=== PATIENT | female | born 1985 | race Caucasian/White ===

== ENCOUNTER → 2021-03-18 | Emergency (ER) | payer OTHER ==
[~2021-03-18] VITALS: Ht 165.1 cm; Wt 120.0 kg
[~2021-03-18] MED LIST: CLIN300C9 PO; CLINDAMYCIN HCL 150 MG CAPSULE PO ONE; DEXAMETHASONE SOD PHOS 10 MG/ML VIAL. PO ONE; HYDR-3165 PO; NAPR220C4 PO; NO HOME MEDS; oxyCODONE/APAP 5/325 1 TAB TABLET PO ONE
--- NOTE | 2021-03-18 20:44 | EKG ---
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
--- NOTE | 2021-03-18 21:24 | RAD ---
Study: XR CHEST 1V Indication: Chest pain. Comparison: None. Findings: Low lung volumes with mild basilar volume loss. Unremarkable cardiomediastinal silhouette and dane. N o large effusion or pneumothorax. Impression: No acute radiographic abnormality of the chest. Electronically signed by: BRANDEN WHYTE MD (03/18/2021 9:22 PM) [facility]
[2021-03-18 21:25] LABS: BASO # 0.1 x10^3/uL (0.0-0.2); BASO % 1 % (0-3); EOS # 0.1 x10^3/uL (0.0-0.7); EOS % 1 % (0-3); HEMATOCRIT 40.4 % (36.0-47.0); HEMOGLOBIN 13.7 g/dL (12.0-15.5); LYMPH # 2.8 x10^3/uL (1.0-4.8); LYMPH % 34 % (24-48); MEAN CORPUSCULAR HEMOGLOBIN 31 pg (25-35); MEAN CORPUSCULAR HGB CONC 34 g/dL (31-37); MEAN CORPUSCULAR VOLUME 91 fL (79-100); MONO # 0.7 x10^3/uL (0.0-1.1); MONO % 8 % (0-9); NEUT # 4.5 x10^3uL (1.8-7.7); NEUT % 55 % (31-73); PLATELET COUNT 290 x10^3/uL (140-400); RED BLOOD COUNT 4.43 x10^6/uL (3.50-5.40); RED CELL DISTRIBUTION WIDTH 13.1 % (11.5-14.5); WHITE BLOOD COUNT 8.1 x10^3/uL (4.0-11.0)
[2021-03-18 21:33] LABS: CALCIUM 9.3 mg/dL (8.5-10.1); GFR 62.4; POTASSIUM 3.6 mmol/L (3.5-5.1)
--- NOTE | 2021-03-18 22:14 | PHYS DOC ---
Past History Past Medical History: Diabetes Past Surgical History: Smoking: Non-smoker Alcohol Use: None Drug Use: None Adult General Chief Complaint Chief Complaint: CHEST PAIN HPI HPI Patient is a 35-year-old female who presents with 3 days of sore throat. States it started about 3 days ago she had intermittent mild headache as well. Denies any rhinorrhea, cough, shortness of breath, chest pain, abdominal pain, nausea, vomiting. Denies any recent travel, illnesses, known ill contacts. States she thinks that she did have a fever earlier in the day but does not have a thermometer at home. States she had not taken any medications. Review of Systems Review of Systems Review of systems otherwise unremarkable except noted in HPI Allergies Allergies Allergies Coded Allergies Type Severity Reaction Last Updated Verified Penicillins Allergy Unknown 12/01/15 Yes Physical Exam Physical Exam Constitutional: Well developed, well nourished, no acute distress, non-toxic appearance. [] HENT: Normocephalic, atraumatic, bilateral external ears normal, edematous bilaterally with bilateral exudates nose normal. [] Eyes: conjunctiva normal, no discharge. [] Neck: Normal range of motion, no tenderness, supple, no stridor. [] Cardiovascular:Heart rate regular rhythm, no murmur [] Lungs & Thorax: Bilateral breath sounds clear to auscultation [] Abdomen: soft, no tenderness, no masses, no pulsatile masses. [] Neurologic: Alert and oriented X 3, normal motor function, normal sensory function, no focal deficits noted. [] Psychologic: Affect normal, judgement normal, mood normal. [] Current Patient Data Vital Signs Vital Signs Date Time Temp Pulse Resp B/P (MAP) Pulse Ox O2 Delivery O2 Flow Rate FiO2 03/18/21 19:56 98.5 83 16 128/88 (101) 97 Room Air Lab Results Laboratory Tests Test 03/18/21 20:06 White Blood Count 8.1 x10^3/uL (4.0-11.0) Red Blood Count 4.43 x10^6/uL (3.50-5.40) Hemoglobin 13.7 g/dL (12.0-15.5) Hematocrit 40.4 % (36.0-47.0) Mean Corpuscular Volume 91 fL (79-100) Mean Corpuscular Hemoglobin 31 pg (25-35) Mean Corpuscular Hemoglobin Concent 34 g/dL (31-37) Red Cell Distribution Width 13.1 % (11.5-14.5) Platelet Count 290 x10^3/uL (140-400) Neutrophils (%) (Auto) 55 % (31-73) Lymphocytes (%) (Auto) 34 % (24-48) Monocytes (%) (Auto) 8 % (0-9) Eosinophils (%) (Auto) 1 % (0-3) Basophils (%) (Auto) 1 % (0-3) Neutrophils # (Auto) 4.5 x10^3uL (1.8-7.7) Lymphocytes # (Auto) 2.8 x10^3/uL (1.0-4.8) Monocytes # (Auto) 0.7 x10^3/uL (0.0-1.1) Eosinophils # (Auto) 0.1 x10^3/uL (0.0-0.7) Basophils # (Auto) 0.1 x10^3/uL (0.0-0.2) D-Dimer (Eusebia) 0.43 mg/L (0.00-0.50) Sodium Level 140 mmol/L (136-145) Potassium Level 3.6 mmol/L (3.5-5.1) Chloride Level 101 mmol/L (98-107) Carbon Dioxide Level 26 mmol/L (21-32) Anion Gap 13 (6-14) Blood Urea Nitrogen 20 mg/dL (7-20) Creatinine 1.0 mg/dL (0.6-1.0) Estimated GFR (Cockcroft-Gault) 62.4 Glucose Level 261 mg/dL (70-99) H Calcium Level 9.3 mg/dL (8.5-10.1) Troponin I Quantitative < 0.017 ng/mL (0-0.055) EKG EKG Normal rate, normal QTC normal QRS, no STEMI [] Radiology/Procedures Radiology/Procedures [] Heart Score C/O Chest Pain: No Risk Factors: Risk Factors: DM, Current or recent (<one month) smoker, HTN, HLP, family history of CAD, obesity. Risk Scores: Risk Factors: DM, Current or recent (<one month) smoker, HTN, HLP, family history of CAD, obesity. Course & Med Decision Making Course & Med Decision Making Patient is a 35-year-old female who presents with sore throat for 3 days Vital signs not concerning. Physical exam noted above. Centor criteria suggestive of strep pharyngitis Started on antibiotics in the ED. Given dexamethasone. Given pain medication. Discussed all findings with patient and advised on pain management at home. Advised to follow-up with primary care physician when she can to discuss ED visit and set up a follow-up visit. Gave return precautions to the ED. Patient grateful, verbalized understanding and agreed with plan of discharge. [] Dragon Disclaimer Dragon Disclaimer This electronic medical record was generated, in whole or in part, using a voice recognition dictation system. Departure Departure: Disposition: HOME / SELF CARE / HOMELESS Condition: GOOD Referrals: PCP,ROSA (PCP) RHETT VARELA MD Patient Instructions: Strep Throat Additional Instructions: Please read all of the attached information. Please take your antibiotics as prescribed. You can use Tylenol, ibuprofen and Cepacol lozenges at home as needed for pain control. Please follow-up with your primary care physician as soon as you can to discuss your ED visit and set up a follow-up visit. Please come back to the ED with new or concerning symptoms. Scripts Clindamycin Hcl (CLINDAMYCIN HCL) 300 Mg Capsule 1 CAP PO TID for strep throat for 10 Days, #29 CAP Prov: CRISTIAN KLEIN MD 03/18/21 CRISTIAN KLEIN MD March 18, 2021 22:14
[2021-03-18 22:21] VITALS: BP 128/70
== END ==
LOC: ER 19:42
DX: J02.9 Acute pharyngitis, unspecified (principal); R51.9 Headache, unspecified; R50.9 Fever, unspecified; E11.9 Type 2 diabetes mellitus without complications; Z98.890 Other specified postprocedural states; Z88.0 Allergy status to penicillin
CPT/HCPCS: 36415; 71045; 80048; 84484; 85025; 85379; 93005; 99285; J1100

== ENCOUNTER 2021-04-19 15:42 | Emergency (ER) | payer OTHER ==
[~2021-04-19] VITALS: Ht 165.1 cm; Wt 121.9 kg
[~2021-04-19 15:42] MED LIST changes: -CLINDAMYCIN HCL 150 MG CAPSULE PO ONE; -DEXAMETHASONE SOD PHOS 10 MG/ML VIAL. PO ONE; -oxyCODONE/APAP 5/325 1 TAB TABLET PO ONE
--- NOTE | 2021-04-19 16:08 | PHYS DOC ---
Past History Past Medical History: Diabetes, Gallstones Past Surgical History: Smoking: Non-smoker Alcohol Use: None Drug Use: None General Adult EDM: Chief Complaint: ABDOMINAL PAIN HPI: HPI: 35-year-old female presents with epigastric abdominal pain. Patient started to have pain last night after eating Rotel dip and jalapeno poppers. She had discomfort overnight and did not sleep well. She still states of pain that is 9 out of 10 in the epigastric area. She describes it as sharp. She denies nausea or vomiting. Denies fever or chills. She has no history of abdominal surgery except for 2 C-sections. She does not drink alcohol. Review of Systems: Review of Systems: Constitutional: Denies fever or chills Eyes: Denies change in visual acuity HENT: Denies nasal congestion or sore throat Respiratory: Denies cough or shortness of breath Cardiovascular: Denies chest pain or edema GI: Epigastric abdominal pain. Denies nausea, vomiting, bloody stools or diarrhea : Denies dysuria Musculoskeletal: Denies back pain or joint pain Integument: Denies rash Neurologic: Denies headache, focal weakness or sensory changes Endocrine: Denies polyuria or polydipsia Lymphatic: Denies swollen glands Psychiatric: Denies depression or anxiety Allergies: Allergies: Allergies Coded Allergies Type Severity Reaction Last Updated Verified Penicillins Allergy Unknown 12/01/15 Yes Physical Exam: PE: Constitutional: Well developed, well nourished, morbidly obese, no acute distress, non-toxic appearance. [] HENT: Normocephalic, atraumatic, bilateral external ears normal, oropharynx moist, no oral exudates, nose normal. [] Eyes: PERRLA, EOMI, conjunctiva normal, no discharge. [] Neck: Normal range of motion, no tenderness, supple, no stridor. [] Cardiovascular: Heart rate regular rhythm, no murmur [] Lungs & Thorax: Bilateral breath sounds clear to auscultation [] Abdomen: Bowel sounds normal, soft, epigastric tenderness, no masses, no pulsatile masses. [] Skin: Warm, dry, no erythema, no rash. [] Back: No tenderness, no CVA tenderness. [] Extremities: No tenderness, no cyanosis, no clubbing, ROM intact, no edema. [] Neurologic: Alert and oriented X 3, normal motor function, normal sensory function, no focal deficits noted. [] Psychologic: Affect normal, judgement normal, mood normal. [] Current Patient Data: Vital Signs: Vital Signs Date Time Temp Pulse Resp B/P (MAP) Pulse Ox O2 Delivery O2 Flow Rate FiO2 04/19/21 15:50 98.6 113 16 118/81 (93) 97 EKG: EKG: [] Radiology/Procedures: Radiology/Procedures: [] Heart Score: C/O Chest Pain: N/A Risk Factors: Risk Factors: DM, Current or recent (<one month) smoker, HTN, HLP, family history of CAD, obesity. Risk Scores: Score 0 - 3: 2.5% MACE over next 6 weeks - Discharge Home Score 4 - 6: 20.3% MACE over next 6 weeks - Admit for Clinical Observation Score 7 - 10: 72.7% MACE over next 6 weeks - Early Invasive Strategies Course & Med Decision Making: Course & Med Decision Making Pertinent Labs and Imaging studies reviewed. (See chart for details) The patient was given Zofran and toradol for pain. Her labs are unremarkable except for an elevated blood sugar of over 400. It turns out the patient is out of her Metformin and insulin and has not been taking it in several days. I will give her a liter normal saline and 10 units of regular insulin IV. Incidentally the patient has yeast in her urine I will treat her with a single dose of Diflucan in the ED. the patient repeat blood sugar is less than 200. She is feeling much better. She is stable for discharge at this time. I have stressed to her that she needs to get on her medications and needs follow-up with her primary physician tomorrow. The patient does have Metformin she does has not been taking it. I have encouraged her to take this medication. [] Dragon Disclaimer: Chanda Disclaimer: This electronic medical record was generated, in whole or in part, using a voice recognition dictation system. Departure Departure: Impression: Primary Impression: Hyperglycemia due to diabetes mellitus Disposition: HOME / SELF CARE / HOMELESS Condition: IMPROVED Referrals: PCP,ROSA (PCP) Patient Instructions: Hyperglycemia, [id number] LORA MALHOTRA DO Apr 19, 2021 16:08
[2021-04-19] MEDS ORDERED: FAMOTIDINE 20 MG/2 ML VIAL IVP ONE (16:15)
[2021-04-19] MEDS ORDERED: CONTRAST GIVEN. MC PRN (16:15)
[2021-04-19] MEDS ORDERED: ONDANSETRON PF 4 MG/2 ML VIAL. IVP ONE (16:15)
[2021-04-19] MEDS ORDERED: KETOROLAC 30 MG/ML VIAL. IVP ONE (16:15)
[2021-04-19] MEDS ORDERED: IV NORMAL SALINE 1,000ML 1,000 ML IV ONE (16:15)
[2021-04-19] MEDS ORDERED: IOHEXOL 300 MG/ML 75 ML VIAL. IV ONE (16:15)
[2021-04-19 16:43] LABS: CALCIUM 9.1 mg/dL (8.5-10.1); CREATININE 0.7 mg/dL (0.6-1.0); GFR 94.2; POTASSIUM 4.2 mmol/L (3.5-5.1)
[2021-04-19 16:43] LABS: BILIRUBIN,URINE NEG (NEG); CLARITY,URINE HAZY; COLOR,URINE STRAW; GLUCOSE,URINE 500 mg/dL (NEG); NITRITE,URINE NEG (NEG); UROBILINOGEN,URINE 0.2 mg/dL (0.2 mg/dL)
[2021-04-19] MEDS ORDERED: INSULIN REGULAR 100 UNIT/ML 3ML VIAL. IV ONE (16:45)
[2021-04-19 16:47] LABS: BACTERIA,URINE FEW /HPF (0-FEW); SQUAMOUS EPITHELIAL CELL,UR MOD /LPF
[2021-04-19 16:48] LABS: YEAST,URINE PRESENT /HPF
[2021-04-19 16:49] LABS: ALBUMIN 3.3 g/dL (3.4-5.0); ALBUMIN/GLOBULIN RATIO 0.9 (1.0-1.7); TOTAL BILIRUBIN 0.7 mg/dL (0.2-1.0); TOTAL PROTEIN 6.8 g/dL (6.4-8.2)
[2021-04-19 16:54] LABS: BASO # 0.1 x10^3/uL (0.0-0.2); BASO % 1 % (0-3); EOS # 0.1 x10^3/uL (0.0-0.7); EOS % 1 % (0-3); HEMATOCRIT 42.1 % (36.0-47.0); HEMOGLOBIN 14.4 g/dL (12.0-15.5); LYMPH # 2.5 x10^3/uL (1.0-4.8); LYMPH % 29 % (24-48); MEAN CORPUSCULAR HEMOGLOBIN 32 pg (25-35); MEAN CORPUSCULAR HGB CONC 34 g/dL (31-37); MEAN CORPUSCULAR VOLUME 92 fL (79-100); MONO # 0.7 x10^3/uL (0.0-1.1); MONO % 8 % (0-9); NEUT # 5.2 x10^3uL (1.8-7.7); NEUT % 61 % (31-73); PLATELET COUNT 324 x10^3/uL (140-400); RED BLOOD COUNT 4.57 x10^6/uL (3.50-5.40); RED CELL DISTRIBUTION WIDTH 13.2 % (11.5-14.5); WHITE BLOOD COUNT 8.6 x10^3/uL (4.0-11.0)
[2021-04-19] MEDS ORDERED: FLUCONAZOLE 100 MG TABLET. PO ONE (17:00)
--- NOTE | 2021-04-19 17:22 | RAD ---
Exam Date: 04/19/2021 5:[address] ABDOMEN+PELVIS W Indication: Reason: epigastric pain / Spl. Instructions: / History: TECHNIQUE: CT examination of the abdomen and pelvis was performed following the administration of no nionic intravenous contrast. One or more of the following dose reduction techniques were utilized: *Automated exposure control (AEC) *Adjustment of mA and/or kV according to patient size *Use of iterative reconstruction technique *CT scan done according to ALARA, or ALARA/IMAGE GENTLY FINDINGS: The visualized lung bases are clear. There is a large gallstone. The liver, gallbladder, spleen, pancreas, adrenal glands and kidneys are otherwise normal. Urinary bladder is normal in appearance. There is no bowel obstruction or inflammation. The appendix is normal. There is a small fat-containi ng umbilical hernia. No significant atherosclerotic calcifications are seen. No lymphadenopathy or ascites is seen. Degenerative changes are seen in the spine. IMPRESSION: No evidence of acute intra-abdominal pathology. Electronically signed by: Nicholas Mckeon MD (04/19/2021 5:19 PM) [facility]
[2021-04-19 18:00] VITALS: BP 127/79
== END 2021-04-19 18:10 | disposition home or self-care (01) ==
LOC: ER 15:42
DX: E11.65 Type 2 diabetes mellitus with hyperglycemia (principal); R10.13 Epigastric pain; Z98.890 Other specified postprocedural states; Z88.0 Allergy status to penicillin
CPT/HCPCS: 36415; 74177; 80053; 81001; 81025; 82947; 85025; 87086; 96361; 96374; 96375; 99285; J1815; J1885; J2405; J3490; J7030; Q9967

== ENCOUNTER 2021-06-12 23:55 | Emergency (ER) | payer OTHER ==
[~2021-06-12] VITALS: Ht 165.1 cm; Wt 121.9 kg
--- NOTE | 2021-06-13 00:22 | PHYS DOC ---
Past History Past Medical History: Diabetes, Gallstones Past Surgical History: Smoking: Non-smoker Alcohol Use: None Drug Use: None General Adult EDM: Chief Complaint: HYPERGLYCEMIA HPI: HPI: 36-year-old female presents with dehydration and concern for hyperglycemia. The patient [place] the [place] and she only drank two 16 ounce bottles of water. She was feeling very nauseated and has not eaten for several hours. She was supposed to take a long-acting insulin over an hour ago and she has not taken that. EMS had blood sugar above 300. Patient denies fever or chills. She has not had vomiting. She has no other complaints this time. Review of Systems: Review of Systems: Constitutional: Denies fever or chills Eyes: Denies change in visual acuity HENT: Denies nasal congestion or sore throat Respiratory: Denies cough or shortness of breath Cardiovascular: Denies chest pain or edema GI: Nausea. Denies abdominal pain, vomiting, bloody stools or diarrhea : Denies dysuria Musculoskeletal: Denies back pain or joint pain Integument: Denies rash Neurologic: Denies headache, focal weakness or sensory changes Endocrine: Denies polyuria or polydipsia Lymphatic: Denies swollen glands Psychiatric: Denies depression or anxiety Current Medications: Current Meds: Current Medications Medications (Trade) Dose Ordered Sig/Naresh Start Time Stop Time Status Last Admin Dose Admin Sodium Chloride 1,000 ml @ 1,000 mls/hr 1X ONCE 06/13/21 00:30 06/13/21 01:29 Allergies: Allergies: Allergies Coded Allergies Type Severity Reaction Last Updated Verified Penicillins Allergy Unknown 12/01/15 Yes Physical Exam: PE: Constitutional: Well developed, well nourished, morbidly obese, no acute distress, non-toxic appearance. [] HENT: Normocephalic, atraumatic, bilateral external ears normal, oropharynx moist, no oral exudates, nose normal. [] Eyes: PERRLA, EOMI, conjunctiva normal, no discharge. [] Neck: Normal range of motion, no tenderness, supple, no stridor. [] Cardiovascular: Heart rate 120, regular rhythm, no murmur [] Lungs & Thorax: Bilateral breath sounds clear to auscultation [] Abdomen: Bowel sounds normal, soft, no tenderness, no masses, no pulsatile masses. [] Skin: Warm, dry, no erythema, no rash. [] Back: No tenderness, no CVA tenderness. [] Extremities: No tenderness, no cyanosis, no clubbing, ROM intact, no edema. [] Neurologic: Alert and oriented X 3, normal motor function, normal sensory function, no focal deficits noted. [] Psychologic: Affect normal, judgement normal, mood anxious. [] EKG: EKG: [] Radiology/Procedures: Radiology/Procedures: [] Heart Score: C/O Chest Pain: N/A Risk Factors: Risk Factors: DM, Current or recent (<one month) smoker, HTN, HLP, family history of CAD, obesity. Risk Scores: Score 0 - 3: 2.5% MACE over next 6 weeks - Discharge Home Score 4 - 6: 20.3% MACE over next 6 weeks - Admit for Clinical Observation Score 7 - 10: 72.7% MACE over next 6 weeks - Early Invasive Strategies Course & Med Decision Making: Course & Med Decision Making Pertinent Labs and Imaging studies reviewed. (See chart for details) The patient's labs are significant for a blood sugar of 338. Her anion gap is normal. We have given her a liter of normal saline, 4 mg of Zofran and 10 units of regular insulin. Her blood sugar has improved. She is more hydrated and feeling better at this time. She is stable for discharge. [] Dragon Disclaimer: Dragon Disclaimer: This electronic medical record was generated, in whole or in part, using a voice recognition dictation system. Departure Departure: Impression: Primary Impression: Hyperglycemia Additional Impression: Dehydration Disposition: HOME / SELF CARE / HOMELESS Condition: IMPROVED Referrals: PCP,ROSA (PCP) Patient Instructions: Dehydration, Adult, [id number], Hyperglycemia, [id number] LORA MALHOTRA DO Jun 13, 2021 00:22
[2021-06-13] MEDS ORDERED: IV NORMAL SALINE 1,000ML 1,000 ML IV ONE (00:30)
[2021-06-13 00:39] LABS: BASO # 0.1 x10^3/uL (0.0-0.2); BASO % 1 % (0-3); EOS # 0.1 x10^3/uL (0.0-0.7); EOS % 1 % (0-3); HEMATOCRIT 42.5 % (36.0-47.0); HEMOGLOBIN 14.2 g/dL (12.0-15.5); LYMPH # 2.9 x10^3/uL (1.0-4.8); LYMPH % 26 % (24-48); MEAN CORPUSCULAR HEMOGLOBIN 31 pg (25-35); MEAN CORPUSCULAR HGB CONC 33 g/dL (31-37); MEAN CORPUSCULAR VOLUME 93 fL (79-100); MONO # 1.1 x10^3/uL (0.0-1.1); MONO % 9 % (0-9); NEUT # 7.3 x10^3uL (1.8-7.7); NEUT % 64 % (31-73); PLATELET COUNT 293 x10^3/uL (140-400); RED BLOOD COUNT 4.57 x10^6/uL (3.50-5.40); RED CELL DISTRIBUTION WIDTH 12.7 % (11.5-14.5); WHITE BLOOD COUNT 11.5 x10^3/uL (4.0-11.0)
[2021-06-13 00:44] LABS: BILIRUBIN,URINE NEG (NEG); CLARITY,URINE HAZY; COLOR,URINE YELLOW; GLUCOSE,URINE >=1000 mg/dL (NEG); NITRITE,URINE NEG (NEG); UROBILINOGEN,URINE 0.2 mg/dL (0.2 mg/dL)
[2021-06-13 00:45] LABS: BACTERIA,URINE FEW /HPF (0-FEW); RBC,URINE 0 /HPF (0-2); SQUAMOUS EPITHELIAL CELL,UR MOD /LPF
[2021-06-13 00:47] LABS: CALCIUM 8.5 mg/dL (8.5-10.1); CREATININE 0.8 mg/dL (0.6-1.0); GFR 80.3; POTASSIUM 3.8 mmol/L (3.5-5.1)
[2021-06-13 00:51] LABS: BARBITURATES NEG (NEG); BENZODIAZEPINES NEG (NEG); CANNABINOIDS NEG (NEG); COCAINE NEG (NEG); METHADONE NEG (NEG); OPIATES NEG (NEG); PHENCYCLIDINE NEG (NEG)
[2021-06-13 00:52] LABS: ALBUMIN 3.6 g/dL (3.4-5.0); ALBUMIN/GLOBULIN RATIO 1.1 (1.0-1.7); TOTAL BILIRUBIN 0.5 mg/dL (0.2-1.0); TOTAL PROTEIN 6.9 g/dL (6.4-8.2)
[2021-06-13 00:55] LABS: AMPHETAMINE/METHAMPHETAMINE NEG (NEG)
[2021-06-13] MEDS ORDERED: ONDANSETRON PF 4 MG/2 ML VIAL. IVP ONE (01:00)
[2021-06-13] MEDS ORDERED: INSULIN REGULAR 100 UNIT/ML 3ML VIAL. IV ONE (01:30)
[2021-06-13 02:05] VITALS: BP 113/72
== END 2021-06-13 02:10 | disposition home or self-care (01) ==
LOC: ER 23:55
DX: E11.65 Type 2 diabetes mellitus with hyperglycemia (principal); E86.0 Dehydration; Z88.0 Allergy status to penicillin
CPT/HCPCS: 36415; 80053; 80307; 81001; 81025; 82947; 85025; 87086; 96361; 96374; 96375; 99284; J1815; J2405; J7030

== ENCOUNTER 2021-08-22 00:14 | Emergency (ER) | payer OTHER ==
[~2021-08-22] VITALS: Ht 165.1 cm; Wt 124.5 kg
[~2021-08-22 00:14] MED LIST changes: +CLIN-95 PO; -CLIN300C9 PO
--- NOTE | 2021-08-22 00:25 | PHYS DOC ---
Past History Past Medical History: Diabetes, Gallstones Past Surgical History: Smoking: Non-smoker Alcohol Use: None Drug Use: None Adult General HPI HPI Patient is a 36-year-old female G3, P2, who presents with abdominal pain, stating she is at approximately 12 weeks gestation. States that earlier today she started having some lower abdominal cramping that has been intermittent, 5 out of 10 at its worst, dull and achy in nature. Denies any vaginal bleeding, vaginal discharge, vaginal pain, loss of fluid. States she is currently being treated with antibiotics for urinary tract infection that was given to her by her primary care physician 6 days ago. States they also tested her for bacterial vaginosis, yeast and trichomonas and was negative. States she has not had a ultrasound up to this point. Review of Systems Review of Systems Review of systems otherwise unremarkable except noted in HPI Allergies Allergies Allergies Coded Allergies Type Severity Reaction Last Updated Verified Penicillins Allergy Unknown 12/01/15 Yes Physical Exam Physical Exam Constitutional: Well developed, well nourished, no acute distress, non-toxic appearance. [] HENT: Normocephalic, atraumatic, oropharynx moist, no oral exudates, Eyes: conjunctiva normal, no discharge. [] Neck: Normal range of motion, no tenderness, supple, no stridor. [] Cardiovascular:Heart rate regular rhythm, no murmur [] Lungs & Thorax: Bilateral breath sounds clear to auscultation [] Abdomen: soft, no tenderness, no masses, no pulsatile masses : No labial lesions, no blood in the vaginal vault, closed os. [] Skin: Warm, dry, no erythema, no rash. [] Back: no CVA tenderness. [] Extremities: No tenderness, no cyanosis, no clubbing, ROM intact, no edema. [] Neurologic: Alert and oriented X 3, normal motor function, normal sensory function, able to sit, stand and walk without issue no focal deficits noted. [] Psychologic: Affect normal, judgement normal, mood normal. [] EKG EKG [] Radiology/Procedures Radiology/Procedures [] EXAM: ULTRASOUND PELVIS 08/22/2021 INDICATION: Reason: lower ab pain, , no US / Spl. Instructions: / History: . Last menstrual period was 05/14/2021. COMPARISON: None available. TECHNIQUE: Transvaginal sonography was performed. FINDINGS: There is a hypoechoic focus within the endometrial canal cleaner assistant with gestational sac. That shows mean sac diameter of 1.22 cm, correlating with a 6 week 0 day gestation. Yolk sac is visualized. No pole is seen at this time. No subchorionic collection. Right ovary measures 2.5 x 2.3 x 2.4 cm. Normal color flow. The left ovary is not clearly identified. No adnexal mass or free fluid. IMPRESSION: 1. Gestational sac and yolk sac within the endometrial canal definite pole or cardiac activity at this time. This is likely related to a early viable IUP, although demise cannot be excluded. Follow-up imaging may be warranted to ensure development. 2. Otherwise no acute findings. Electronically signed by: Candido Schulte MD (08/22/2021 2:25 AM) [facility] Heart Score C/O Chest Pain: No Risk Factors: Risk Factors: DM, Current or recent (<one month) smoker, HTN, HLP, family history of CAD, obesity. Risk Scores: Risk Factors: DM, Current or recent (<one month) smoker, HTN, HLP, family history of CAD, obesity. Course & Med Decision Making Course & Med Decision Making Patient is a 36-year-old female, at approximately 12 weeks gestation presents with abdominal pain Vital signs initially notable for sinus tachycardia which resolved in the ED without any intervention. Physical exam noted above. Laboratory analysis notable for hyperglycemia and glucosuria but no anion gap and pH is normal. Ultrasound noted gestational sac and yolk sac correlating with a 6-week gestation but no pole seen at this time. Recommended follow-up ultrasound. Patient with asymptomatic bacteriuria but currently on a course of Keflex for UTI that was started by her primary care physician. Advised to keep taking until gone. Advised to call primary care physician first thing Tuesday morning to update on ED visit, and set up a follow-up as soon as possible to discuss repeat ultrasound. Family grateful, verbalized understanding and agreed with plan of discharge. Dragon Disclaimer Dragon Disclaimer This electronic medical record was generated, in whole or in part, using a voice recognition dictation system. Departure Departure: Impression: Primary Impression: Abdominal cramping Additional Impressions: Asymptomatic bacteriuria Early stage of Disposition: HOME / SELF CARE / HOMELESS Condition: Referrals: ANTON SAMLLS (PCP) Patient Instructions: ABCs of Additional Instructions: Thank you for coming into the emergency department tonight and allowing us to take care of you. Please read the attached information carefully to go over things we discussed. You are given a copy of the ultrasound report. It is very important that you follow-up with your primary care physician first thing Tuesday morning to make them aware of your ED visit, and need for repeat ultrasound in 1 to 2 weeks as well as any other evaluation treatment he feels necessary. Please come back to the ED with new or concerning symptoms as we discussed. Problem Qualifiers CRISTIAN KLEIN MD Aug 22, 2021 00:25
[2021-08-22 00:39] VITALS: BP 138/88
[2021-08-22 01:20] LABS: BACTERIA,URINE FEW /HPF (0-FEW); BILIRUBIN,URINE NEG (NEG); CLARITY,URINE CLEAR; COLOR,URINE YELLOW; GLUCOSE,URINE >=1000 mg/dL (NEG); NITRITE,URINE NEG (NEG); RBC,URINE 0 /HPF (0-2); SQUAMOUS EPITHELIAL CELL,UR FEW /LPF; UROBILINOGEN,URINE 0.2 mg/dL (0.2 mg/dL)
--- NOTE | 2021-08-22 02:27 | RAD ---
EXAM: ULTRASOUND PELVIS 08/22/2021 INDICATION: Reason: lower ab pain, , no US / Spl. Instructions: / History: . Last menstrual period was 05/14/2021. COMPARISON: None available. TECHNIQUE: Transvaginal sonography was performed. FINDINGS: There is a hypoechoic focus within the endometrial canal operations and intelligence assistant with gestational sac. That shows m dejah sac diameter of 1.22 cm, correlating with a 6 week 0 day gestation. Yolk sac is visualized. No fe chloé pole is seen at this time. No subchorionic collection. Right ovary measures 2.5 x 2.3 x 2.4 cm. Normal color flow. The left ovary is not clearly identified. No adnexal mass or free fluid. IMPRESSION: 1. Gestational sac and yolk sac within the endometrial canal definite pole or cardiac activity at this time. This is likely related to a early viable IUP, although demise cannot be excluded. Follo w-up imaging may be warranted to ensure development. 2. Otherwise no acute findings. Electronically signed by: Candido Schulte MD (08/22/2021 2:25 AM) [facility]
[2021-08-22 02:32] LABS: HEMATOCRIT 41.7 % (36.0-47.0); HEMOGLOBIN 14.1 g/dL (12.0-15.5); RED BLOOD COUNT 4.51 x10^6/uL (3.50-5.40); RED CELL DISTRIBUTION WIDTH 13.5 % (11.5-14.5); WHITE BLOOD COUNT 10.1 x10^3/uL (4.0-11.0)
[2021-08-22 02:41] LABS: CALCIUM 9.3 mg/dL (8.5-10.1); CREATININE 0.6 mg/dL (0.6-1.0); GFR 111.9
== END 2021-08-22 02:54 | disposition home or self-care (01) ==
LOC: ER 00:14
DX: O26.891 Other specified pregnancy related conditions, first trimester (principal); R82.71 Bacteriuria; R10.30 Lower abdominal pain, unspecified; O24.911 Unspecified diabetes mellitus in pregnancy, first trimester; Z3A.01 Less than 8 weeks gestation of pregnancy; Z98.890 Other specified postprocedural states; Z88.0 Allergy status to penicillin
CPT/HCPCS: 36415; 76830; 80048; 81001; 81025; 82803; 85027; 99284-25

== ENCOUNTER 2021-09-02 20:25 | Emergency (ER) | payer OTHER ==
[~2021-09-02] VITALS: Ht 165.1 cm; Wt 124.5 kg
[2021-09-02 20:44] VITALS: BP 135/89
--- NOTE | 2021-09-02 20:51 | PHYS DOC ---
Past History Past Medical History: Diabetes, Gallstones Past Surgical History: , Other Additional Past Surgical Histo: WISDOM TEETH, FOOT SX Smoking: Non-smoker Alcohol Use: None Drug Use: None Adult General Chief Complaint Chief Complaint: ABDOMINAL PAIN IN HPI HPI Patient is a 36-year-old female who presents to the emergency department with a chief complaint of wanting her ultrasound report. States she was here 11 days ago, and had a transvaginal ultrasound that showed a 6-week but did not get to see the baby and gave her report to her doctor. Denies any headache, chest pain, shortness of breath, abdominal pain, nausea, vomiting, vaginal bleeding, vaginal discharge or pain. States she just wanted to see the baby. Denies any recent travels, traumas, fevers. States she has an appointment in 12 days with an MANAGER TECHNICAL for her first appointment. Review of Systems Review of Systems Review of systems otherwise unremarkable except noted in HPI Allergies Allergies Allergies Coded Allergies Type Severity Reaction Last Updated Verified Penicillins Allergy Unknown 12/01/15 Yes Physical Exam Physical Exam Constitutional: Well developed, well nourished, no acute distress, non-toxic appearance. [] HENT: Normocephalic, atraumatic, bilateral external ears normal, oropharynx moist, no oral exudates, nose normal. [] Eyes: conjunctiva normal, no discharge. [] Neck: Normal range of motion, no tenderness, supple, no stridor. [] Cardiovascular:Heart rate regular rhythm, no murmur [] Lungs & Thorax: Bilateral breath sounds clear to auscultation [] Abdomen: soft, no tenderness, no masses, no pulsatile masses. [] Skin: Warm, dry, no erythema, no rash. [] Back: no CVA tenderness. [] Extremities: No tenderness, ROM intact, no edema. [] Neurologic: Alert and oriented X 3, no focal deficits noted. [] Psychologic: Affect normal, judgement normal, mood normal. [] EKG EKG [] Radiology/Procedures Radiology/Procedures [] Heart Score C/O Chest Pain: No Risk Factors: Risk Factors: DM, Current or recent (<one month) smoker, HTN, HLP, family history of CAD, obesity. Risk Scores: Risk Factors: DM, Current or recent (<one month) smoker, HTN, HLP, family history of CAD, obesity. Course & Med Decision Making Course & Med Decision Making Patient is a 36-year-old female at about 7-1/2 weeks who presents for her ultrasound report Vital signs not concerning. Physical exam noted above. Patient given printed report and disc from ultrasound done 11 days ago. Advised to call her primary care in the morning to update. Advised to call MANAGER TECHNICAL in the morning to update and confirm upcoming appointment. Advised not to miss either appointments. Gave strict return precautions to the ED. Patient grateful, verbalized understanding and agreed with plan of discharge. [] Dragon Disclaimer Dragon Disclaimer This electronic medical record was generated, in whole or in part, using a voice recognition dictation system. Departure Departure: Impression: Primary Impression: Disposition: 01 HOME / SELF CARE / HOMELESS Condition: GOOD Referrals: ANTON SMALLS (PCP) Patient Instructions: ABCs of Additional Instructions: Thank you for coming into the emergency department tonight and allowing us to take care of you. Please read the attached information carefully to go back ov er things we discussed. Please call your MANAGER TECHNICAL first thing in the morning to update them on your ED visit and make them aware that you have an ultrasound report and disc and would like to get that to them. Please come back to the ED with new or concerning symptoms as we discussed. CRISTIAN KLEIN MD Sep 02, 2021 20:51
== END 2021-09-02 21:06 | disposition home or self-care (01) ==
LOC: ER 20:25
DX: Z34.91 Encounter for supervision of normal pregnancy, unspecified, first trimester (principal); O24.911 Unspecified diabetes mellitus in pregnancy, first trimester; Z98.890 Other specified postprocedural states; Z3A.08 8 weeks gestation of pregnancy; Z88.0 Allergy status to penicillin
CPT/HCPCS: 99283

== ENCOUNTER 2021-09-14 18:10 | Emergency (ER) | payer OTHER ==
[~2021-09-14] VITALS: Ht 165.1 cm; Wt 122.0 kg
[2021-09-14 18:15] VITALS: BP 106/82
[2021-09-14 18:52] LABS: BASO # 0.1 x10^3/uL (0.0-0.2); BASO % 1 % (0-3); EOS # 0.1 x10^3/uL (0.0-0.7); EOS % 1 % (0-3); HEMATOCRIT 43.5 % (36.0-47.0); HEMOGLOBIN 14.6 g/dL (12.0-15.5); LYMPH # 2.9 x10^3/uL (1.0-4.8); LYMPH % 29 % (24-48); MEAN CORPUSCULAR HEMOGLOBIN 31 pg (25-35); MEAN CORPUSCULAR HGB CONC 33 g/dL (31-37); MEAN CORPUSCULAR VOLUME 93 fL (79-100); MONO # 0.6 x10^3/uL (0.0-1.1); MONO % 6 % (0-9); NEUT # 6.4 x10^3uL (1.8-7.7); NEUT % 63 % (31-73); PLATELET COUNT 324 x10^3/uL (140-400); RED BLOOD COUNT 4.68 x10^6/uL (3.50-5.40)
[2021-09-14 19:44] LABS: BILIRUBIN,URINE NEG (NEG); CLARITY,URINE HAZY; COLOR,URINE YELLOW; GLUCOSE,URINE NEG (NEG)
[2021-09-14 19:45] LABS: BACTERIA,URINE FEW /HPF (0-FEW); NITRITE,URINE NEG (NEG); RBC,URINE 20-40 /HPF (0-2); SQUAMOUS EPITHELIAL CELL,UR MANY /LPF; UROBILINOGEN,URINE 0.2 mg/dL (0.2 mg/dL)
[2021-09-14 20:18] LABS: CALCIUM 9.5 mg/dL (8.5-10.1); CREATININE 0.6 mg/dL (0.6-1.0); GFR 111.9; POTASSIUM 3.5 mmol/L (3.5-5.1)
--- NOTE | 2021-09-14 20:20 | PHYS DOC ---
Past History Past Medical History: Diabetes, Gallstones (HILLARY PALUMBO APRN) Past Surgical History: , Other Additional Past Surgical Histo: WISDOM TEETH, FOOT SX (HILLARY PALUMBO APRN) Smoking: Non-smoker Alcohol Use: None Drug Use: None (HILLARY PALUMBO APRN) General Adult EDM: Chief Complaint: VAGINAL BLEEDING HPI: HPI: Patient is a 36-year-old female presents with vaginal spotting. Unknown LMP. Patient states "I was seen here a few weeks ago and had an ultrasound, I should be around 9 weeks". "I have a DIGITAL PROGRAM MANAGER appointment scheduled for Tuesday". Denies abdominal pain, discharge, urinary symptoms. G3, P2. (HILLARY PALUMBO APRN) Review of Systems: Review of Systems: ROS At least 10 ROS systems have been reviewed and are negative except as documented in the HPI. General: Negative except as outlined in HPI above. Skin: Negative except as outlined in HPI above. HEENT: Negative except as outlined in HPI above. Neck: Negative except as outlined in HPI above. Respiratory: Negative except as outlined in HPI above.. Cardiovascular: Negative except as outlined in HPI above. Abdomen: Negative except as outlined in HPI above. : Negative except as outlined in HPI above. Back/MSK: Negative except as outlined in HPI above. Neuro: Negative except as outlined in HPI above. Psych: Negative except as outlined in HPI above. (HILLARY PALUMBO APRN) Allergies: Allergies: Allergies Coded Allergies Type Severity Reaction Last Updated Verified Penicillins Allergy Unknown 09/14/21 Yes (HILLARY PALUMBO APRN) Physical Exam: PE: Constitutional: Well developed, well nourished, no acute distress, non-toxic appearance. [] HENT: Normocephalic, atraumatic, bilateral external ears normal, oropharynx moist, no oral exudates, nose normal. [] Eyes: PERRLA, EOMI, conjunctiva normal, no discharge. [] Neck: Normal range of motion, no tenderness, supple, no stridor. [] Cardiovascular:Heart rate regular rhythm, no murmur [] Lungs & Thorax: Bilateral breath sounds clear to auscultation [] Abdomen: Bowel sounds normal, soft, no tenderness, no masses, no pulsatile masses. [] Skin: Warm, dry, no erythema, no rash. [] Back: No tenderness, no CVA tenderness. [] Extremities: No tenderness, no cyanosis, no clubbing, ROM intact, no edema. [] Neurologic: Alert and oriented X 3, normal motor function, normal sensory function, no focal deficits noted. [] Psychologic: Affect normal, judgement normal, mood normal. [] (HILLARY PALUMBO APRN) Current Patient Data: Labs: Laboratory Tests Test 09/14/21 18:15 09/14/21 18:40 09/14/21 18:46 White Blood Count 10.0 x10^3/uL (4.0-11.0) Red Blood Count 4.68 x10^6/uL (3.50-5.40) Hemoglobin 14.6 g/dL (12.0-15.5) Hematocrit 43.5 % (36.0-47.0) Mean Corpuscular Volume 93 fL (79-100) Mean Corpuscular Hemoglobin 31 pg (25-35) Mean Corpuscular Hemoglobin Concent 33 g/dL (31-37) Red Cell Distribution Width 13.0 % (11.5-14.5) Platelet Count 324 x10^3/uL (140-400) Neutrophils (%) (Auto) 63 % (31-73) Lymphocytes (%) (Auto) 29 % (24-48) Monocytes (%) (Auto) 6 % (0-9) Eosinophils (%) (Auto) 1 % (0-3) Basophils (%) (Auto) 1 % (0-3) Neutrophils # (Auto) 6.4 x10^3uL (1.8-7.7) Lymphocytes # (Auto) 2.9 x10^3/uL (1.0-4.8) Monocytes # (Auto) 0.6 x10^3/uL (0.0-1.1) Eosinophils # (Auto) 0.1 x10^3/uL (0.0-0.7) Basophils # (Auto) 0.1 x10^3/uL (0.0-0.2) Urine Collection Type Clean catch Urine Color Yellow Urine Clarity Hazy Urine pH 5.0 Urine Specific Power >=1.030 Urine Protein Trace (NEG-TRACE) Urine Glucose (UA) Neg mg/dL (NEG) Urine Ketones (Stick) 15 mg/dL (NEG) Urine Blood Large (NEG) Urine Nitrite Neg (NEG) Urine Bilirubin Neg (NEG) Urine Urobilinogen Dipstick 0.2 mg/dL (0.2 mg/dL) Urine Leukocyte Esterase Trace (NEG) Urine RBC 20-40 /HPF (0-2) Urine WBC 11-20 /HPF (0-4) Urine Squamous Epithelial Cells Many /LPF Urine Bacteria Few /HPF (0-FEW) Maternal Serum HCG Beta Subunit 5880 mIU/mL (0-6) H POC Urine HCG, Qualitative hcg positive (Negative) Vital Signs: Vital Signs Date Time Temp Pulse Resp B/P (MAP) Pulse Ox O2 Delivery O2 Flow Rate FiO2 09/14/21 18:15 97.8 104 18 106/82 (90) 98 Room Air (HILLARY PALUMBO APRN) EKG: EKG: [] (HILLARY PALUMBO APRN) Radiology/Procedures: Radiology/Procedures: [] (HILLARY PALUMBO APRN) Heart Score: C/O Chest Pain: No Risk Factors: Risk Factors: DM, Current or recent (<one month) smoker, HTN, HLP, family history of CAD, obesity. Risk Scores: Score 0 - 3: 2.5% MACE over next 6 weeks - Discharge Home Score 4 - 6: 20.3% MACE over next 6 weeks - Admit for Clinical Observation Score 7 - 10: 72.7% MACE over next 6 weeks - Early Invasive Strategies (HILLARY PALUMBO APRN) Course & Med Decision Making: Course & Med Decision Making Pertinent Labs and Imaging studies reviewed. (See chart for details) [] Nontoxic-appearing, 36-year-old female presents with vaginal spotting. Denies any abdominal pain. Patient had an ultrasound which was reviewed by me on 08/22. Ultrasound showed intrauterine urine . All labs are unrem arkable. Quant hCG was 5880. Discussed results with patient. Patient has an appointment with her SUPERVISOR COMPOUNDING AND FINISHING on Tuesday. Explained to patient she would need a second quant level drawn. UA was positive for bacteria. Patient started on antibiotics to treat UTI. Discussed return precautions in length. Patient states that she understands discharge instructions. Patient is hemodynamically stable. (HILLARY PALUMBO APRN) Dragon Disclaimer: Dragon Disclaimer: This electronic medical record was generated, in whole or in part, using a voice recognition dictation system. (HILLARY PALUMBO APRN) Departure Departure: Impression: Primary Impression: Vaginal spotting Disposition: HOME / SELF CARE / HOMELESS Condition: STABLE Referrals: ANTON SMALLS (PCP) Patient Instructions: Vaginal Bleeding During , First Trimester Additional Instructions: You are seen in the emergency room for vaginal spotting. All of your labs were unremarkable. Your beta hCG was 5880. Please keep your follow-up appointment on Tuesday with your SUPERVISOR COMPOUNDING AND FINISHING and have your quant levels redrawn. Return to the emergency room with any worsening symptoms or concerns EMERGENCY DEPARTMENT GENERAL DISCHARGE INSTRUCTIONS Thank you for coming to [facility] (ED) today and trusting us with you care. We trust that you had a positivie experience in our Emergency Department. If you wish to speak to the department management, you may call the director at [phone]. YOUR FOLLOW UP INSTRUCTIONS ARE FOLLOWS: 1. Do you have a private Doctor? If you do not have a private doctor, please ask for a resource list of physicians or clinics that may be able to assist you with follow up care. 2. The Emergency Physician has interpreted your x-rays. The X-Ray specialist will also review them. If there is a change in the findings, you will be notified in 48 hours when at all possible. 3. A lab test or culture has been done, your results will be reviewed and you will be notified if you need a change in treatment. ADDITIONAL INSTRUCTIONS AND INFORMATION: 1. Your care today has been supervised by a physician who is specially trained in emergency care. Many problems require more than one evaluation for a complete diagnosis and treatment. We recommend that you schedule your follow up appointment as recommended to ensure complete treatment of you illness or injury. If you are unable to obtain follow up care and continue to have a problem, or if your condition worsens, we recommend that you return to the ED. 2. We are not able to safely determine your condition over the phone nor are we able to give sound medical advice over the phone. For these safety reasons, if you call for medical advice we will ask you to come to the ED for further evaluation. 3. If you have any questions regarding these discharge instructions please call the ED at [phone]. SAFETY INFORMATION: In the interest of safety, wellness, and injury prevention; we encourage you to wear your sealbelt, if you smoke; quite smoking, and we encourage family to use a p rotective helmet for bicycling and other sporting events that present an increased risk for head injury. IF YOUR SYMPTOMS WORSEN OR NEW SYMPTOMS DEVELOP, OR YOU HAVE CONCERNS ABOUT YOUR CONDITION; OR IF YOUR CONDITION WORSENS WHILE YOU ARE WAITING FOR YOUR FOLLOW UP APPOINTMENT; EITHER CONTACT YOUR PRIMARY CARE DOCTOR, THE PHYSICIAN WHOSE NAME AND NUMBER YOU WERE GIVEN, OR RETURN TO THE ED IMMEDIATELY. Scripts Ciprofloxacin Hcl (CIPROFLOXACIN HCL) 500 Mg Tablet 1 TAB PO BID for uti for 10 Days, #20 TAB Prov: HILLARY PALUMBO APRN 09/14/21 Attending Signature Attending Signature I have participated in the care of this patient and I have reviewed and agree with all pertinent clinical information above including history, exam, and recommendations. (TRISHA GARCIA MD) Attending Signature Attending Signature I have participated in the care of this patient and I have reviewed and agree with all pertinent clinical information above including history, exam, and recommendations. (TRISHA GARCIA MD) HILLARY PALUMBO APRN Sep 14, 2021 20:20 TRISHA GARCIA MD Sep 18, 2021 17:41
[2021-09-14] MEDS ORDERED: CIPR500T2 PO (20:28)
== END 2021-09-14 20:34 | disposition home or self-care (01) ==
LOC: ER 18:10
DX: O46.91 Antepartum hemorrhage, unspecified, first trimester (principal); O24.911 Unspecified diabetes mellitus in pregnancy, first trimester; Z3A.09 9 weeks gestation of pregnancy; Z88.0 Allergy status to penicillin
CPT/HCPCS: 36415; 80048; 81001; 81025; 84702; 85025; 86850; 86900; 86901; 87086; 99283

== ENCOUNTER 2021-09-20 00:03 | Emergency (ER) | payer OTHER ==
[~2021-09-20] VITALS: Ht 165.1 cm; Wt 122.0 kg
[~2021-09-20 00:03] MED LIST changes: +CIPR500T2 PO
--- NOTE | 2021-09-20 00:38 | PHYS DOC ---
Past History Past Medical History: Diabetes, Gallstones Past Surgical History: , Other Additional Past Surgical Histo: WISDOM TEETH, FOOT SX Smoking: Non-smoker, Second-hand Alcohol Use: None Drug Use: None General Adult EDM: Chief Complaint: VAGINAL BLEEDING HPI: HPI: ".. I am bleeding a lot... I seen my doctor.. OB doctor on .. but they said I lost the baby.. but I still bleeding.. I was going to [facility] on [address].. I did not want to go there.... just wanted to get checked out.. here lst , and if I need to go... take the ambulance there.. from here... " Patient is a 36 year old female who presents with above hx and complaints of threatened miscarriage and vaginal bleeding. Patient reportedly told on ultrasound on Tuesday that they did not see the baby's heartbeat. Patient [facility] Patient told she can be checked out here and if she needs to transfer at that time transfer to [facility]. Patient is unsure the amount of bleeding she has had has not kept pad counts. This is patient's third . She has had 2 previous pregnancies by . No history of coagulopathy. No history of travel. No history of specific ill contacts. No history of trauma. Patient does not know her blood type. Patient has had COVID vaccination but not flu vaccination this season. Has had 5 lifetime sex partners. No history of STDs. Has had urinary tract infections. Has only one current sexual partner. Patient is on vitamins. Patient follows with the primary [place] for care. Pt. does have hx of DM, Review of Systems: Review of Systems: Constitutional: Denies fever or chills Eyes: Denies change in visual acuity HENT: Denies nasal congestion or sore throat Respiratory: Denies cough or shortness of breath Cardiovascular: Denies chest pain or edema GI: Complains of crampy abdominal pain, nausea. and vaginal bleeding., vomiting, bloody stools or diarrhea : Denies dysuria Musculoskeletal: Denies back pain or joint pain Integument: Denies rash Neurologic: Denies headache, focal weakness or sensory changes Endocrine: Denies polyuria or polydipsia Lymphatic: Denies swollen glands Psychiatric: Denies depression or anxiety Family History: Family History: Noncontributory to presentation Current Medications: Current Meds: See nursing for home meds Allergies: Allergies: Allergies Coded Allergies Type Severity Reaction Last Updated Verified Penicillins Allergy Unknown 09/14/21 Yes Physical Exam: PE: Constitutional: Moderate acute distress, non-toxic appearance. [] HENT: Normocephalic, atraumatic, bilateral external ears normal, oropharynx moist, no oral exudates, nose normal. [] Eyes: PERRLA, EOMI, conjunctiva normal, no discharge. [] Neck: Normal range of motion, no tenderness, supple, no stridor. [] Cardiovascular:Heart rate regular rhythm, no murmur [] Lungs & Thorax: Bilateral breath sounds clear to auscultation [] Abdomen: Bowel sounds normal, soft, mild lower abdomen tenderness, no masses, no pulsatile masses. Obese. Old surgery scars. Vaginal exam shows a office slightly dilated to half centimeter. Blood clots in os. No cervical motion tenderness. Exam rectal hard stool. Skin: Warm, dry, no erythema, no rash. [] Back: No tenderness, no CVA tenderness. [] Extremities: No tenderness, no cyanosis, no clubbing, ROM intact, no edema. [] Neurologic: Alert and oriented X 3, normal motor function, normal sensory function, no focal deficits noted. [] No Trousseau sign. Psychologic: Affect anxious, judgement normal, mood normal. [] Current Patient Data: Vital Signs: Vital Signs Date Time Temp Pulse Resp B/P (MAP) Pulse Ox O2 Delivery O2 Flow Rate FiO2 09/20/21 00:11 98.0 111 20 133/118 (123) 96 Room Air EKG: EKG: My interpretation of monitor shows a sinus rhythm with no acute findings. [] Radiology/Procedures: Radiology/Procedures: [address] [address] IMAGING REPORT Signed PATIENT: TWIN LEMONCOUNT: [id number] : 1985 LOCATION: ER AGE: 36 SEX: F EXAM STATUS: REG ER ORD. PHYSICIAN: TRISHA GARCIA MD REASON: bleeding , cramp, =/1- 10 weeks? miscarry PROCEDURE: OB LIMITED US OB LIMITED Clinical Indication: Reason: bleeding , cramp, =/1- 10 weeks? miscarry . Beta HCG 1935. Comparison: None. TECHNIQUE: Real-time ultrasound imaging of the pelvis using transabdominal and transvaginal window is performed. Findings: Ovaries are similar in size and demonstrate normal blood flow. Uterus measures 10.7 x 4.5 x 5.1 cm. Uterus is anteverted. The endometrial stripe is prominent measuring 1.9 cm transvaginally. An intrauterine gestational sac is not identified. Early intrauterine or failed first trimester are considerations. No cul-de-sac free fluid is identified. No evidence of adnexal mass. IMPRESSION: Intrauterine gestational sac is not identified. Suggest serial quantitative beta hCG. Electronically signed by: Frank Sears MD (09/20/2021 2:25 AM) [facility] DICTATED AND SIGNED BY: FRANK SEARS MD DATE: 09/20/21220 CC: TRISHA GARCIA MD; ANTON SMALLS ~MTH0 0 [][address] [place] [address] IMAGING REPORT Signed PATIENT: TWIN LEMONCOUNT: [id number] : 1985 LOCATION: ER AGE: 36 SEX: F EXAM STATUS: REG ER ORD. PHYSICIAN: TRISHA GARCIA MD REASON: bleeding , cramp, =/1- 10 weeks? miscarry PROCEDURE: OB LIMITED US OB LIMITED Clinical Indication: Reason: bleeding , cramp, =/1- 10 weeks? miscarry . Beta HCG 1935. Comparison: None. TECHNIQUE: Real-time ultrasound imaging of the pelvis using transabdominal and transvaginal window is performed. Findings: Ovaries are similar in size and demonstrate normal blood flow. Uterus measures 10.7 x 4.5 x 5.1 cm. Uterus is anteverted. The endometrial stripe is prominent measuring 1.9 cm transvaginally. An intrauterine gestational sac is not identified. Early intrauterine or failed first trimester are considerations. No cul-de-sac free fluid is identified. No evidence of adnexal mass. IMPRESSION: Intrauterine gestational sac is not identified. Suggest serial quantitative beta hCG. Electronically signed by: Frank Sears MD (09/20/2021 2:25 AM) [facility] DICTATED AND SIGNED BY: FRANK SEARS MD DATE: 09/20/21220 CC: TRISHA GARCIA MD; ANTON SMALLS ~MTH0 0 Heart Score: C/O Chest Pain: N/A HEART Score for Chest Pain: HEART Score for Chest Pain Response (Comments) Value History Slighlty/Non-Suspicious 0 ECG Normal 0 Age < 45 0 Risk Factors No Risk Factors 0 Troponin < Normal Limit 0 Total 0 Risk Factors: Risk Factors: DM, Current or recent (<one month) smoker, HTN, HLP, family history of CAD, obesity. Risk Scores: Score 0 - 3: 2.5% MACE over next 6 weeks - Discharge Home Score 4 - 6: 20.3% MACE over next 6 weeks - Admit for Clinical Observation Score 7 - 10: 72.7% MACE over next 6 weeks - Early Invasive Strategies Course & Med Decision Making: Course & Med Decision Making Pertinent Labs and Imaging studies reviewed. (See chart for details) Pt. continue pad counts. Have a repeat BHCG in three days. Follow up with her carpenter inspector. Follow up pending cultures. Return if any concerns. Impression: 1. Threatened /miscarriage 2. Gravid 3/2 C-sections 3. Diabetes glucose 236 4. Beta hCG 1935 5. Blood type O+positive 6. Rapid COVID Negative 7. Hgb= 13.5 [] Dragon Disclaimer: Dragon Disclaimer: This electronic medical record was generated, in whole or in part, using a voice recognition dictation system. Departure Departure: Referrals: ANTON SMALLS (PCP) Chanda Disclaimer This chart was dictated in whole or in part using Voice Recognition software in a busy, high-work load, and often noisy Emergency Department environment. It may contain unintended and wholly unrecognized errors or omissions. TRISHA GARCIA MD Sep 20, 2021 00:38
[2021-09-20] MEDS ORDERED: FAMOTIDINE 20 MG/2 ML VIAL IVP ONE (01:00)
[2021-09-20] MEDS ORDERED: IV RINGERS SOLUTION,LACTATED 1,000 ML IV SCH (01:00)
[2021-09-20] MEDS ORDERED: ONDANSETRON PF 4 MG/2 ML VIAL. IVP ONE (01:00)
[2021-09-20 01:01] LABS: ALBUMIN 3.3 g/dL (3.4-5.0); DIRECT BILIRUBIN 0.1 mg/dL (0.0-0.2); TOTAL BILIRUBIN 0.3 mg/dL (0.2-1.0); TOTAL PROTEIN 7.1 g/dL (6.4-8.2)
[2021-09-20 01:02] LABS: AMPHETAMINE/METHAMPHETAMINE NEG (NEG)
[2021-09-20 01:19] LABS: CLARITY,URINE CLEAR; COLOR,URINE YELLOW; GLUCOSE,URINE 500 mg/dL (NEG)
[2021-09-20 01:26] LABS: BACTERIA,URINE FEW /HPF (0-FEW); BILIRUBIN,URINE NEG (NEG); NITRITE,URINE NEG (NEG); RBC,URINE 0 /HPF (0-2); SQUAMOUS EPITHELIAL CELL,UR FEW /LPF; UROBILINOGEN,URINE 0.2 mg/dL (0.2 mg/dL)
[2021-09-20 01:36] LABS: BASO # 0.1 x10^3/uL (0.0-0.2); BASO % 1 % (0-3); EOS # 0.1 x10^3/uL (0.0-0.7); EOS % 1 % (0-3); HEMATOCRIT 39.5 % (36.0-47.0); HEMOGLOBIN 13.5 g/dL (12.0-15.5); LYMPH # 2.3 x10^3/uL (1.0-4.8); LYMPH % 25 % (24-48); MEAN CORPUSCULAR HEMOGLOBIN 31 pg (25-35); MEAN CORPUSCULAR HGB CONC 34 g/dL (31-37); MEAN CORPUSCULAR VOLUME 92 fL (79-100); MONO # 0.7 x10^3/uL (0.0-1.1); MONO % 8 % (0-9); NEUT # 6.2 x10^3uL (1.8-7.7); NEUT % 65 % (31-73); PLATELET COUNT 318 x10^3/uL (140-400); RED CELL DISTRIBUTION WIDTH 12.8 % (11.5-14.5); WHITE BLOOD COUNT 9.4 x10^3/uL (4.0-11.0)
[2021-09-20 01:56] LABS: CALCIUM 9.1 mg/dL (8.5-10.1); CREATININE 0.7 mg/dL (0.6-1.0); GFR 93.6; POTASSIUM 3.8 mmol/L (3.5-5.1)
[2021-09-20 01:57] LABS: BARBITURATES NEG (NEG); BENZODIAZEPINES NEG (NEG); CANNABINOIDS NEG (NEG); COCAINE NEG (NEG); METHADONE NEG (NEG); OPIATES NEG (NEG); PHENCYCLIDINE NEG (NEG)
--- NOTE | 2021-09-20 02:27 | RAD ---
US OB LIMITED Clinical Indication: Reason: bleeding , cramp, =/1- 10 weeks? miscarry . Beta HCG 1934. Comparison: None. TECHNIQUE: Real-time ultrasound imaging of the pelvis using transabdominal and transvaginal window is performed. Findings: Ovaries are similar in size and demonstrate normal blood flow. Uterus measures 10.7 x 4.5 x 5.1 cm. Uterus is anteverted. The endometrial stripe is prominent measuring 1.9 cm transvaginally. An intrauterine gestational sac is not identified. Early intrauterine or failed first trimester are consideration s. No cul-de-sac free fluid is identified. No evidence of adnexal mass. IMPRESSION: Intrauterine gestational sac is not identified. Suggest serial quantitative beta hCG. Electronically signed by: Frank Sears MD (09/20/2021 2:25 AM) [facility]
[2021-09-20 03:20] VITALS: BP 125/78
[2021-09-21 21:11] LABS: CHLAMYDIA PROBE Negative (Negative)
== END 2021-09-20 03:19 | disposition home or self-care (01) ==
LOC: ER 00:03
DX: O20.0 Threatened abortion (principal); R11.0 Nausea; O24.911 Unspecified diabetes mellitus in pregnancy, first trimester; Z20.822 Contact with and (suspected) exposure to COVID-19; Z77.22 Contact with and (suspected) exposure to environmental tobacco smoke (acute) (chronic); Z3A.12 12 weeks gestation of pregnancy; Z98.890 Other specified postprocedural states; Z88.0 Allergy status to penicillin
CPT/HCPCS: 36415; 76815; 80048; 80076; 80307; 81001; 82550; 84702; 85025; 85610; 85730; 86900; 86901; 87426; 87491; 87591; 96360; 96361; 99284; C9803; J7120; U0003

== ENCOUNTER 2021-10-16 21:17 | Emergency (ER) | payer OTHER ==
[~2021-10-16] VITALS: Ht 165.1 cm; Wt 119.5 kg
[2021-10-16 21:31] VITALS: BP 127/75
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
[2021-10-16] MEDS ORDERED: oxyCODONE/APAP 5/325 1 TAB TABLET PO ONE (22:00)
== END 2021-10-16 22:00 | disposition home or self-care (01) ==
LOC: ER 21:17
DX: T23.102A Burn of first degree of left hand, unspecified site, initial encounter (principal); T23.101A Burn of first degree of right hand, unspecified site, initial encounter; E11.9 Type 2 diabetes mellitus without complications; Z77.22 Contact with and (suspected) exposure to environmental tobacco smoke (acute) (chronic); Z88.0 Allergy status to penicillin; X11.8XXA Contact with other hot tap-water, initial encounter; Y93.89 Activity, other specified; Y92.89 Other specified places as the place of occurrence of the external cause; Y99.8 Other external cause status
CPT/HCPCS: 99283

== ENCOUNTER 2021-11-21 16:01 | Emergency (ER) | payer OTHER ==
[~2021-11-21] VITALS: Ht 165.1 cm; Wt 126.0 kg
[2021-11-21 16:01] VITALS: BP 122/71
[2021-11-21 17:22] LABS: BACTERIA,URINE 0 /HPF (0-FEW); BILIRUBIN,URINE NEG (NEG); CLARITY,URINE HAZY; COLOR,URINE YELLOW; GLUCOSE,URINE NEG (NEG); NITRITE,URINE NEG (NEG); RBC,URINE 0 /HPF (0-2); SQUAMOUS EPITHELIAL CELL,UR MANY /LPF; UROBILINOGEN,URINE 0.2 mg/dL (0.2 mg/dL); WBC,URINE 0 /HPF (0-4)
--- NOTE | 2021-11-21 18:18 | PHYS DOC ---
Past History Past Medical History: Diabetes, Gallstones Past Surgical History: , Other Additional Past Surgical Histo: WISDOM TEETH, FOOT SX Smoking: Non-smoker, Second-hand Alcohol Use: None Drug Use: None Adult General Chief Complaint Chief Complaint: BLURRED/DOUBLE VISION [facility] HPI Patient is a 36-year-old female patient presenting to the ED today complaining of 1 episode of blurry vision prior to coming to the ED. Patient states it was "for a few minutes". Patient states symptoms have completely subsided in the ED. She states she has no complaints but has not had a cycle for 3 months Review of Systems Review of Systems Constitutional: Denies fever or chills [] Eyes: Denies change in visual acuity, redness, or eye pain [] HENT:Reports blurry vision. Denies nasal congestion or sore throat [] Respiratory: Denies cough or shortness of breath [] Cardiovascular: No additional information not addressed in HPI [] GI: Denies abdominal pain, nausea, vomiting, bloody stools or diarrhea [] : Denies dysuria or hematuria [] Musculoskeletal: Denies back pain or joint pain [] Integument: Denies rash or skin lesions [] Neurologic: Denies headache, focal weakness or sensory changes [] All other systems were reviewed and found to be within normal limits, except as documented in this note. Allergies Allergies Allergies Coded Allergies Type Severity Reaction Last Updated Verified Penicillins Allergy Intermediate 10/16/21 Yes Physical Exam Physical Exam Constitutional: Overweight patient, no acute distress, non-toxic appearance. [] HENT: Normocephalic, atraumatic, bilateral external ears normal, oropharynx moist, no oral exudates, nose normal. [] Eyes: PERRLA, EOMI, conjunctiva normal, no discharge. [] Neck: Normal range of motion, no tenderness, supple, no stridor. [] Cardiovascular:Heart rate regular rhythm, no murmur [] Lungs & Thorax: Bilateral breath sounds clear to auscultation [] Abdomen: Bowel sounds normal, soft, no tenderness, no masses, no pulsatile masses. [] Skin: Warm, dry, no erythema, no rash. [] Back: No tenderness, no CVA tenderness. [] Extremities: No tenderness, no cyanosis, no clubbing, ROM intact, no edema. [] Neurologic: Alert and oriented X 3, normal motor function, normal sensory function, no focal deficits noted. Cranial nerves II through XII intact Psychologic: Affect normal, judgement normal, mood normal. [] Current Patient Data Vital Signs Vital Signs Date Time Temp Pulse Resp B/P (MAP) Pulse Ox O2 Delivery O2 Flow Rate FiO2 11/21/21 16:01 98.2 90 18 122/71 (88) Lab Results Laboratory Tests Test 11/21/21 16:27 11/21/21 16:34 Urine Collection Type Clean catch Urine Color Yellow Urine Clarity Hazy Urine pH 5.5 Urine Specific [place] >=1.030 Urine Protein Neg (NEG-TRACE) Urine Glucose (UA) Neg mg/dL (NEG) Urine Ketones (Stick) Neg mg/dL (NEG) Urine Blood Neg (NEG) Urine Nitrite Neg (NEG) Urine Bilirubin Neg (NEG) Urine Urobilinogen Dipstick 0.2 mg/dL (0.2 mg/dL) Urine Leukocyte Esterase Neg (NEG) Urine RBC 0 /HPF (0-2) Urine WBC 0 /HPF (0-4) Urine Squamous Epithelial Cells Many /LPF Urine Bacteria 0 /HPF (0-FEW) POC Urine HCG, Qualitative hcg negative (Negative) EKG EKG [] Radiology/Procedures Radiology/Procedures [] Heart Score C/O Chest Pain: N/A Risk Factors: Risk Factors: DM, Current or recent (<one month) smoker, HTN, HLP, family history of CAD, obesity. Risk Scores: Risk Factors: DM, Current or recent (<one month) smoker, HTN, HLP, family history of CAD, obesity. Course & Med Decision Making Course & Med Decision Making Pertinent Labs and Imaging studies reviewed. (See chart for details) This is a 36-year-old female patient presented to the ED today complaining of an episode of blurry vision that occurred prior to coming to the ED, she states she has no symptoms since arrival to the ED. Blood sugar per EMS was 250. Patient is diabetic. She states this blood sugars are actually better than her baseline. Patient is also complaining she has not had a menstrual cycle for 3 months. Negative urine hCG. Patient had a lengthy stay in the ED unfortunately she decided to leave because she could not wait any longer for further work-up. She states she is hungry and needs to go home and eat. Dragon Disclaimer Dragon Disclaimer This electronic medical record was generated, in whole or in part, using a voice recognition dictation system. Departure Departure: Impression: Primary Impression: Blurry vision Additional Impression: Amenorrhea Disposition: 01 HOME / SELF CARE / HOMELESS Condition: STABLE Referrals: ANTON SMALLS (PCP) follow up with your doctor, locker room manager and OBGYN next week Patient Instructions: Athletic Amenorrhea-SportsMed, Eye - Blurred Vision Additional Instructions: You were evaluated in the emergency room. Please follow-up with your primary care doctor next week. Please follow-up with your BUFFER CHROME for lack of menstrual cycles Please follow-up with an locker room manager Problem Qualifiers HYACINTH SCHMIDT WAREHOUSE ASSISTANT Nov 21, 2021 18:18
== END 2021-11-21 18:10 | disposition home or self-care (01) ==
LOC: ER 16:01
DX: H53.8 Other visual disturbances (principal); N91.2 Amenorrhea, unspecified; E11.9 Type 2 diabetes mellitus without complications; Z77.22 Contact with and (suspected) exposure to environmental tobacco smoke (acute) (chronic); Z98.890 Other specified postprocedural states; Z88.0 Allergy status to penicillin
CPT/HCPCS: 81001; 81025; 99283

== ENCOUNTER 2021-12-26 18:56 | Emergency (ER) | payer OTHER ==
[~2021-12-26] VITALS: Ht 165.1 cm; Wt 126.0 kg
[2021-12-26 19:02] VITALS: BP 142/90
[2021-12-26] MEDS ORDERED: AZIT250T6 PO (19:25)
--- NOTE | 2021-12-26 19:25 | PHYS DOC ---
Past History Past Medical History: Diabetes, Gallstones (ANGELO JAVIER APRN) Past Surgical History: , Other Additional Past Surgical Histo: WISDOM TEETH, FOOT SX (ANGELO JAVIER APRN) Smoking: Non-smoker, Second-hand Alcohol Use: None Drug Use: None (ANGELO JAVIER APRN) General Adult EDM: Chief Complaint: SORE THROAT HPI: HPI: Patient is a 36-year-old female that presents today with sore throat for 3 to 4 days. Patient states she was seen by her primary care physician given a p rescription, she states she never got that filled, she was seen yesterday at [facility] she was given an injection of some kind and instructed to get her prescription filled and to follow-up with her primary care, she presents today because her throat is still sore and swollen. Patient also complains of nasal congestion as well. Patient is a poor historian and is unable to verbalize what kind of medication she has had or what has been diagnosed for her. (ANGELO JAVIER APRN) Review of Systems: Review of Systems: Constitutional: Denies fever or chills Eyes: Denies change in visual acuity HENT: sore throat Respiratory: Denies cough or shortness of breath Cardiovascular: Denies chest pain or edema GI: Denies abdominal pain, nausea, vomiting, bloody stools or diarrhea : Denies dysuria Musculoskeletal: Denies back pain or joint pain Integument: Denies rash Neurologic: Denies headache, focal weakness or sensory changes Endocrine: Denies polyuria or polydipsia Lymphatic: Denies swollen glands Psychiatric: Denies depression or anxiety (ANGELO JAVIER APRN) Allergies: Allergies: Allergies Coded Allergies Type Severity Reaction Last Updated Verified Penicillins Allergy Intermediate 10/16/21 Yes (ANGELO JAVIER APRN) Physical Exam: PE: Constitutional: Well developed, well nourished, no acute distress, non-toxic appearance. [] HENT: Normocephalic, atraumatic, bilateral external ears normal, oropharynx moist, no oral exudates, tonsils are 2+, nares are reddened. [] Eyes: PERRLA, EOMI, conjunctiva normal, no discharge. [] Neck: Normal range of motion, no tenderness, supple, no stridor. [] Cardiovascular:Heart rate regular rhythm, no murmur [] Lungs & Thorax: Bilateral breath sounds clear to auscultation [] Abdomen: Bowel sounds normal, soft, no tenderness, no masses, no pulsatile masses. [] Skin: Warm, dry, no erythema, no rash. [] Back: No tenderness, no CVA tenderness. [] Extremities: No tenderness, no cyanosis, no clubbing, ROM intact, no edema. [] Neurologic: Alert and oriented X 3, normal motor function, normal sensory function, no focal deficits noted. [] Psychologic: Affect normal, judgement normal, mood normal. [] (ANGELO JAVIER APRN) Current Patient Data: Vital Signs: Vital Signs Date Time Temp Pulse Resp B/P (MAP) Pulse Ox O2 Delivery O2 Flow Rate FiO2 12/26/21 19:02 98.1 98 18 142/90 (107) 97 Room Air (ANGELO JAVIER APRN) EKG: EKG: [] (ANGELO JAVIER APRN) Radiology/Procedures: Radiology/Procedures: [] (ANGELO JAVIER APRN) Heart Score: C/O Chest Pain: N/A Risk Factors: Risk Factors: DM, Current or recent (<one month) smoker, HTN, HLP, family history of CAD, obesity. Risk Scores: Score 0 - 3: 2.5% MACE over next 6 weeks - Discharge Home Score 4 - 6: 20.3% MACE over next 6 weeks - Admit for Clinical Observation Score 7 - 10: 72.7% MACE over next 6 weeks - Early Invasive Strategies (ANGELO JAVIER APRN) Course & Med Decision Making: Course & Med Decision Making Pertinent Labs and Imaging studies reviewed. (See chart for details) Since this patient has been evaluated to previous times, and she has been noncompliant in getting her prescription filled we will give her a dose of Decadron while here in the emergency department also give her dose of Zithromax here and she will need to get a prescription filled with Zithromax for 4 more days of 250 mg. Patient verbalizes understanding of this and be given a plan of care. (ANGELO JAVIER APRN) Course & Med Decision Making Did not see or evaluate patient. Did not discuss patient with MANAGER HI. Agree with MANAGER HI's work-up and disposition per note. (CRISTIAN KLEIN MD) Dragon Disclaimer: Dragon Disclaimer: This electronic medical record was generated, in whole or in part, using a voice recognition dictation system. (ANGELO JAVIER APRN) Departure Departure: Impression: Primary Impression: Pharyngitis Qualified Codes: J02.9 - Acute pharyngitis, unspecified Disposition: HOME / SELF CARE / HOMELESS Condition: STABLE Referrals: CHRIS MCDERMOTT (PCP) Patient Instructions: Viral and Bacterial Pharyngitis Additional Instructions: Tylenol and/or ibuprofen as needed for fever and pain Zithromax 250 mg take 1 tablet daily for 4 days Follow-up with your primary care physician this week if your symptoms still continue. Scripts Azithromycin (AZITHROMYCIN TABLET) 250 Mg Tablet 1 TAB PO DAILY for pharyngitits for 4 Days, #4 TAB 0 Refills Prov: ANEGLO JAVIER APRN 12/26/21 ANGELO JAVIER APRN Dec 26, 2021 19:25 CRISTIAN KLEIN MD Dec 26, 2021 21:21
[2021-12-26] MEDS ORDERED: AZITHROMYCIN 250 MG TABLET. PO ONE (19:30)
[2021-12-26] MEDS ORDERED: DEXAMETHASONE SOD PHOS 10 MG/ML VIAL. PO ONE (19:30)
== END 2021-12-26 19:44 | disposition home or self-care (01) ==
LOC: ER 18:56
DX: J02.9 Acute pharyngitis, unspecified (principal); E11.9 Type 2 diabetes mellitus without complications; Z77.22 Contact with and (suspected) exposure to environmental tobacco smoke (acute) (chronic); Z88.0 Allergy status to penicillin
CPT/HCPCS: 99283; J1100

== ENCOUNTER 2022-01-09 18:07 | Emergency (ER) | payer OTHER ==
[~2022-01-09] VITALS: Ht 165.1 cm; Wt 126.0 kg
[~2022-01-09 18:07] MED LIST changes: +AZIT250T6 PO
--- NOTE | 2022-01-09 19:05 | PHYS DOC ---
Past History Past Medical History: Diabetes, Gallstones Past Surgical History: , Other Additional Past Surgical Histo: WISDOM TEETH, FOOT SX Smoking: Non-smoker, Second-hand Alcohol Use: None Drug Use: None General Adult EDM: Chief Complaint: DIZZY/LIGHT HEADED HPI: HPI: 36-year-old female presents with lightheadedness and dizziness. The patient states that she was sitting in a warm bath when she stood up to get something off of a shelf. She felt lightheaded and dizzy. This scared her so she called EMS. She has never had lightheadedness and dizziness at the same time. She describes the dizziness as a rotation feeling. That has improved but she still feels lightheaded. The patient is a diabetic on Metformin and Trulicity. She did not take her Metformin dose this morning. Her Trulicity is once a week and that is not today. Patient has no other specific complaints at this time. Review of Systems: Review of Systems: Constitutional: Denies fever or chills Eyes: Denies change in visual acuity HENT: Denies nasal congestion or sore throat Respiratory: Denies cough or shortness of breath Cardiovascular: Denies chest pain or edema GI: Denies abdominal pain, nausea, vomiting, bloody stools or diarrhea : Denies dysuria Musculoskeletal: Denies back pain or joint pain Integument: Denies rash Neurologic: Dizziness, light headed. Denies headache, focal weakness or sensory changes Endocrine: Denies polyuria or polydipsia Lymphatic: Denies swollen glands Psychiatric: Denies depression or anxiety Allergies: Allergies: Allergies Coded Allergies Type Severity Reaction Last Updated Verified Penicillins Allergy Intermediate 10/16/21 Yes Physical Exam: PE: Constitutional: Well developed, well nourished, obese, no acute distress, non- toxic appearance. [] HENT: Normocephalic, atraumatic, bilateral external ears normal, oropharynx moist, no oral exudates, nose normal. [] Eyes: PERRLA, EOMI, conjunctiva normal, no discharge. [] Neck: Normal range of motion, no tenderness, supple, no stridor. [] Cardiovascular:Heart rate regular rhythm, no murmur [] Lungs & Thorax: Bilateral breath sounds clear to auscultation [] Abdomen: Bowel sounds normal, soft, no tenderness, no masses, no pulsatile masses. [] Skin: Warm, dry, no erythema, no rash. [] Back: No tenderness, no CVA tenderness. [] Extremities: No tenderness, no cyanosis, no clubbing, ROM intact, no edema. [] Neurologic: Alert and oriented X 3, normal motor function, normal sensory function, no focal deficits noted. [] Psychologic: Affect normal, judgement normal, mood normal. [] EKG: EKG: [] Radiology/Procedures: Radiology/Procedures: [] Heart Score: C/O Chest Pain: N/A Risk Factors: Risk Factors: DM, Current or recent (<one month) smoker, HTN, HLP, family history of CAD, obesity. Risk Scores: Score 0 - 3: 2.5% MACE over next 6 weeks - Discharge Home Score 4 - 6: 20.3% MACE over next 6 weeks - Admit for Clinical Observation Score 7 - 10: 72.7% MACE over next 6 weeks - Early Invasive Strategies Course & Med Decision Making: Course & Med Decision Making Pertinent Labs and Imaging studies reviewed. (See chart for details) The patient's labs are unremarkable. The patient was given her urinalysis does show yeast. I will treat her with Diflucan 100 mg twice daily for 14 days. We will give the first dose in the emergency room. She is stable for discharge at this time. [] Chanda Disclaimer: Chanda Disclaimer: This electronic medical record was generated, in whole or in part, using a voice recognition dictation system. Departure Departure: Impression: Primary Impression: Yeast UTI Disposition: HOME / SELF CARE / HOMELESS Condition: STABLE Referrals: CHRIS MCDERMOTT (PCP) Patient Instructions: Urinary Tract Infection, [id number] Scripts Fluconazole (DIFLUCAN) 100 Mg Tablet 100 MG PO BID for yeast UTI for 14 Days, #28 TAB Prov: LORA MALHOTRA DO 01/09/22 LORA MALHOTRA DO Jan 09, 2022 19:05
[2022-01-09] MEDS ORDERED: IV NORMAL SALINE 1,000ML 1,000 ML IV ONE (19:15)
[2022-01-09] MEDS ORDERED: MECLIZINE 12.5 MG TABLET. PO ONE (19:15)
[2022-01-09 19:43] LABS: CALCIUM 8.8 mg/dL (8.5-10.1); CREATININE 0.6 mg/dL (0.6-1.0); GFR 111.9; POTASSIUM 3.6 mmol/L (3.5-5.1)
[2022-01-09 19:44] LABS: BASO # 0.1 x10^3/uL (0.0-0.2); BASO % 1 % (0-3); EOS # 0.1 x10^3/uL (0.0-0.7); EOS % 1 % (0-3); HEMATOCRIT 39.2 % (36.0-47.0); HEMOGLOBIN 13.1 g/dL (12.0-15.5); LYMPH # 2.5 x10^3/uL (1.0-4.8); LYMPH % 25 % (24-48); MEAN CORPUSCULAR HEMOGLOBIN 30 pg (25-35); MEAN CORPUSCULAR HGB CONC 34 g/dL (31-37); MEAN CORPUSCULAR VOLUME 91 fL (79-100); MONO # 0.7 x10^3/uL (0.0-1.1); MONO % 7 % (0-9); NEUT # 6.6 x10^3uL (1.8-7.7); NEUT % 67 % (31-73); PLATELET COUNT 314 x10^3/uL (140-400); RED BLOOD COUNT 4.32 x10^6/uL (3.50-5.40); RED CELL DISTRIBUTION WIDTH 13.3 % (11.5-14.5); WHITE BLOOD COUNT 9.9 x10^3/uL (4.0-11.0)
[2022-01-09 19:48] LABS: ALBUMIN 3.4 g/dL (3.4-5.0); ALBUMIN/GLOBULIN RATIO 0.9 (1.0-1.7); TOTAL BILIRUBIN 0.3 mg/dL (0.2-1.0); TOTAL PROTEIN 7.2 g/dL (6.4-8.2)
[2022-01-09 20:30] VITALS: BP 112/76
[2022-01-09 20:43] LABS: CLARITY,URINE CLOUDY; COLOR,URINE YELLOW; GLUCOSE,URINE NEG (NEG)
[2022-01-09 20:44] LABS: BACTERIA,URINE FEW /HPF (0-FEW); NITRITE,URINE NEG (NEG); RBC,URINE >40 /HPF (0-2); SQUAMOUS EPITHELIAL CELL,UR FEW /LPF; UROBILINOGEN,URINE 0.2 mg/dL (0.2 mg/dL); YEAST,URINE PRESENT /HPF
[2022-01-09] MEDS ORDERED: FLUC100T7 PO (21:19)
[2022-01-09] MEDS ORDERED: FLUCONAZOLE 100 MG TABLET. PO ONE (21:30)
== END 2022-01-09 21:25 | disposition home or self-care (01) ==
LOC: ER 18:07
DX: B37.49 Other urogenital candidiasis (principal); E11.9 Type 2 diabetes mellitus without complications; Z77.22 Contact with and (suspected) exposure to environmental tobacco smoke (acute) (chronic); Z88.0 Allergy status to penicillin
CPT/HCPCS: 36415; 80053; 81001; 81025; 82947; 85025; 87086; 96360; 99283; J7030

== ENCOUNTER 2022-02-04 13:43 | Emergency (ER) | payer OTHER ==
[~2022-02-04] VITALS: Ht 165.1 cm; Wt 126.0 kg
[~2022-02-04 13:43] MED LIST changes: +FLUC100T7 PO
[2022-02-04 14:02] VITALS: BP 133/83
[2022-02-04] MEDS ORDERED: ASPI-630 PO (14:47)
--- NOTE | 2022-02-04 14:47 | PHYS DOC ---
Past History Past Medical History: Diabetes, Gallstones Past Surgical History: , Other Additional Past Surgical Histo: WISDOM TEETH, FOOT SX Smoking: Non-smoker, Second-hand Alcohol Use: None Drug Use: None Adult General Chief Complaint Chief Complaint: FINGER INJURY [facility] HPI Patient is a [age] year old female presenting to the emergency department for evaluation of numbness to her left thumb that started approximately 30 minutes ago and lasted for 10 to 15 minutes and now it is gone. She says that it is on the dorsal aspect of her thumb and approximate 1 x 3 cm stripe over her extensor tendon of her left thumb. She says she has had this issue multiple times a for the past and has been told it is tendinitis but she has not had any further work-up such as MRI. Patient denies any headache neck pain vision changes confusion difficulty ambulating unilateral weakness numbness or tingling other than the left thumb. 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 She is in no acute distress with normal vital signs. Review of Systems Review of Systems Constitutional: Denies fever or chills [] Eyes: Denies change in visual acuity, redness, or eye pain [] HENT: Denies nasal congestion or sore throat [] Respiratory: Denies cough or shortness of breath [] Cardiovascular: No additional information not addressed in HPI [] GI: Denies abdominal pain, nausea, vomiting, bloody stools or diarrhea [] : Denies dysuria or hematuria [] Musculoskeletal: Denies back pain or joint pain [] Integument: Denies rash or skin lesions [] Neurologic: Denies headache, focal weakness. + sensory changes [] All other systems were reviewed and found to be within normal limits, except as documented in this note. Allergies Allergies Allergies Coded Allergies Type Severity Reaction Last Updated Verified Penicillins Allergy Intermediate 10/16/21 Yes Physical Exam Physical Exam Constitutional: Well developed, well nourished, no acute distress, non-toxic appearance. [] HENT: Normocephalic, atraumatic, bilateral external ears normal, oropharynx moist, no oral exudates, nose normal. [] Eyes: PERRLA, EOMI, conjunctiva normal, no discharge. [] Neck: Normal range of motion, no tenderness, supple, no stridor. [] Cardiovascular:Heart rate regular rhythm, no murmur [] Lungs & Thorax: Bilateral breath sounds clear to auscultation [] Abdomen: Bowel sounds normal, soft, no tenderness, no masses, no pulsatile masses. [] Skin: Warm, dry, no erythema, no rash. [] Back: No tenderness, no CVA tenderness. [] Extremities: No tenderness, no cyanosis, no clubbing, ROM intact, no edema. [] Neurologic: Alert and oriented X 3, normal motor function, normal sensory function, no focal deficits noted. [] Current Patient Data Vital Signs Vital Signs Date Time Temp Pulse Resp B/P (MAP) Pulse Ox O2 Delivery O2 Flow Rate FiO2 02/04/22 14:02 97.9 105 16 133/83 (100) 97 Room Air EKG EKG [] Radiology/Procedures Radiology/Procedures [] Heart Score C/O Chest Pain: No Risk Factors: Risk Factors: DM, Current or recent (<one month) smoker, HTN, HLP, family history of CAD, obesity. Risk Scores: Risk Factors: DM, Current or recent (<one month) smoker, HTN, HLP, family history of CAD, obesity. Course & Med Decision Making Course & Med Decision Making Patient has transient numbness in her left thumb and currently she has a normal exam with no weakness or numbness. Certainly cervical radiculopathy or TIA are in the realm of possibility I told the patient that she would have to be transferred to another facility to get an MRI to be fully evaluated for these conditions. Patient refused stating that she would rather accomplish further testing as an outpatient. I told her that this may be a peripheral nerve issue as well but to be ruled out for the most life-threatening and debilitating potential condition she would need further testing and again patient refused transfer to a facility that has MRI capability. Patient said that a brace helped before in the past and the numbness so I will give her a brace here have her take an aspirin a day and told her to come back to emergency department sooner with worsening pain neurologic changes or general concerns. Patient aware and agreeable with plan and verbalized understanding of the above instructions. Dragon Disclaimer Dragon Disclaimer This electronic medical record was generated, in whole or in part, using a voice recognition dictation system. Departure Departure: Impression: Primary Impression: Numbness of thumb Disposition: HOME / SELF CARE / HOMELESS Condition: IMPROVED Referrals: CHRIS MCDERMOTT (PCP) Patient Instructions: Paresthesia, [id number] Additional Instructions: Take 81mg Aspirin daily. Follow with PCP as soon as possible and come back with any concerns. Thank you! Scripts Aspirin (ASPIRIN) 81 Mg Tab.chew 81 MG PO DAILY, #30 TAB Prov: MABEL HARDY DO 02/04/22 MABEL HARDY DO Feb 04, 2022 14:47
== END 2022-02-04 14:55 | disposition home or self-care (01) ==
LOC: ER 13:43
DX: R20.0 Anesthesia of skin (principal); E11.9 Type 2 diabetes mellitus without complications; Z77.22 Contact with and (suspected) exposure to environmental tobacco smoke (acute) (chronic); Z88.0 Allergy status to penicillin
CPT/HCPCS: 29125; 99283

== ENCOUNTER 2022-03-27 20:58 | Emergency (ER) | payer OTHER ==
[~2022-03-27 20:58] MED LIST changes: +ASPI-630 PO
== END 2022-03-27 21:35 | disposition left against medical advice (07) ==
LOC: ER 20:58
DX: T74.21XA Adult sexual abuse, confirmed, initial encounter (principal); Z53.21 Procedure and treatment not carried out due to patient leaving prior to being seen by health care provider